=== PATIENT | female | born 1985 | race Caucasian/White ===

== ENCOUNTER → 2018-09-20 10:21 | Outpatient (POV) | payer SELFPAY ==
[2018-09-20 10:32] VITALS: BP 120/82; PULSE 103; RESP 20; TEMP 36.7; O2SAT 99
--- NOTE | 2018-09-20 10:50 | HMH.PMCON ---
Assessment and Plan (1) Back pain Current visit: Yes Status: Chronic Qualifiers: Chronicity: chronic Sciatica presence: unspecified whether sciatica present Category: Medical Code(s): M54.9 - Dorsalgia, unspecified (2) Abdominal pain Current visit: Yes Status: Chronic Qualifiers: Abdominal location: generalized Qualified Code(s): R10.84 - Generalized abdominal pain Category: Medical Code(s): R10.9 - Unspecified abdominal pain - Assessment and plan all Dx Assessment and Plan for all problems:: Patient is not a narcotic Today given her ORT score, release from past pain management due to inappropriate drug screen, due to her age and current pathology. Patient states that she is allergic to injections so she is unsure of this I did offer her to come after she has completed her if she would like to get updated imaging and potentially talk about injections in the future. Patient is not interested in this. Dr. Mccain has reviewed this note and agrees with this plan of care. This note was dictated using voice recognition software and may contain errors or omissions HPI - Data of Consult Consult date: 09/20/18 Requesting Physician: Cynthia Henry APRN Primary Care Provider: Osiel Valverde MD - Consult Narrative Reason for consult: Generalized pain History of present illness: Ms. Hernandez is a 33 year old female who presents today for consultation in regards to her medication management. Patient was seen in a pain clinic in [facility] where she was receiving oxycodone 15 mg 1 p.o. 3 times daily. Patient states that she failed a drug screen stating that there was heroin in it however she stated that that was suspect because of the people in the front office did not like her much. Patient also stated that somebody was making appointments that she was unaware of which she missed. Patient has been off oxycodone for some time she is 8 weeks I discussed with her that we would not be prescribing any medication for her especially while she is when asked her symptomology she states that she has endometriosis along with back pain we do not have any recent imaging on the patient. Patient rates her pain a 5 out of 10. Patient has tried and failed chiropractic therapy along with physical therapy. CC: Cynthia Henry APRN [facility] History I have reviewed the patient's past medical history: Yes Medical History: Denies:: Diabetes Mellitus Type 1, Diabetes Mellitus Type 2 Laterality Cases: Left: Other, Right: Arthroscopy Shoulder Amputation: No Fractures: Yes (FOOT) - *Social History Smoking Status: Unknown if ever smoked Alcohol Intake: never *Occupational Status:: other *Travel in the last 8 weeks: None - Psychiatric History Expresses thoughts of harming self/others: None Suicide Plan Description: No Plan Family Hx:: Unable to obtain Review of Systems - Review of Systems ROS General: no recent weight change, no fever, no sleep disturbances Respiratory: no cough, no shortness of air, no recurring pulmonary infections Cardiovascular/Peripheral Vascular: No chest pain, No palpitations, no edema, no shortness of breath. Gastrointestinal: no incontinence, normal bowel movements reported Genitourinary: no incontinence Musculoskeletal: Back pain, abdominal pain Psychiatric: normal mood/ affect Neurological: [denies weakness in extremities], [denies balance issues] Meds Home Medications Medication Instructions Recorded Confirmed Type norgestimate 0.25 mg-ethinyl 1 tab PO DAILY #28 tab 05/10/18 Rx estradiol 35 mcg tablet Allergies Allergy/AdvReac Type Severity Reaction Status Date / Time No Known Allergies Allergy Unverified 06/02/17 15:41 Objective Vital signs: Temp Pulse Resp BP Pulse Ox 98.0 F 103 H 20 120/82 99 09/20/18 10:32 09/20/18 10:32 09/20/18 10:32 09/20/18 10:32 09/20/18 10:32 Donnieat
--- NOTE | 2018-09-20 10:53 | P.CONS_ITS ---
Assessment and Plan (1) Back pain Current visit: Yes Status: Chronic Qualifiers: Chronicity: chronic Sciatica presence: unspecified whether sciatica present Category: Medical Code(s): M54.9 - Dorsalgia, unspecified (2) Abdominal pain Current visit: Yes Status: Chronic Qualifiers: Abdominal location: generalized Qualified Code(s): R10.84 - Generalized abdominal pain Category: Medical Code(s): R10.9 - Unspecified abdominal pain - Assessment and plan all Dx Assessment and Plan for all problems:: Patient is not a narcotic Today given her ORT score, release from past pain management due to inappropriate drug screen, due to her age and current pathology. Patient states that she is allergic to injections so she is unsure of this I did offer her to come after she has completed her if she would like to get updated imaging and potentially talk about injections in the future. Patient is not interested in this. Dr. Mccain has reviewed this note and agrees with this plan of care. This note was dictated using voice recognition software and may contain errors or omissions HPI - Data of Consult Consult date: 09/20/18 Requesting Physician: Cynthia Henry APRN Primary Care Provider: Osiel Valverde MD - Consult Narrative Reason for consult: Generalized pain History of present illness: Ms. Hernandez is a 33 year old female who presents today for consultation in [facility] to her medication management. Patient was seen in a pain clinic in [facility] where she was receiving oxycodone 15 mg 1 p.o. 3 times daily. Patient states that she failed a drug screen stating that there was heroin in it however she stated that that was suspect because of the people in the front office did not like her much. Patient also stated that somebody was making appointments that she was unaware of which she missed. Patient has been off oxycodone for some time she is 8 weeks I discussed with her that we would not be prescribing any medication for her especially while she is when asked her symptomology she states that she has endometriosis along with back pain we do not have any recent imaging on the patient. Patient rates her pain a 5 out of 10. Patient has tried and failed chiropractic therapy along with physical therapy. CC: Cynthia Henry APRN [facility] History I have reviewed the patient's past medical history: Yes Medical History: Denies:: Diabetes Mellitus Type 1, Diabetes Mellitus Type 2 Laterality Cases: Left: Other, Right: Arthroscopy Shoulder Amputation: No Fractures: Yes (FOOT) - *Social History Smoking Status: Unknown if ever smoked Alcohol Intake: never *Occupational Status:: other *Travel in the last 8 weeks: None - Psychiatric History Expresses thoughts of harming self/others: None Suicide Plan Description: No Plan Family Hx:: Unable to obtain Review of Systems - Review of Systems ROS General: no recent weight change, no fever, no sleep disturbances Respiratory: no cough, no shortness of air, no recurring pulmonary infections Cardiovascular/Peripheral Vascular: No chest pain, No palpitations, no edema, no shortness of breath. Gastrointestinal: no incontinence, normal bowel movements reported Genitourinary: no incontinence Musculoskeletal: Back pain, abdominal pain Psychiatric: normal mood/ affect Neurological: [denies weakness in extremities], [denies balance issues] Meds Home Medications Medication I
== END ==
PROVIDERS: PCP Family Medicine; Visit Provider Clinical Nurse Specialist Family Health
DX: M54.9 Dorsalgia, unspecified (principal); R10.84 Generalized abdominal pain
CPT/HCPCS: 99202

== ENCOUNTER → 2022-09-29 15:15 | Outpatient (CLI) | payer MEDICAID, SELFPAY | PROVIDERS: PCP Family Medicine; Visit Provider Family Medicine | DX: I34.1 Nonrheumatic mitral (valve) prolapse (principal) | CPT/HCPCS: 93306 ==

== ENCOUNTER 2025-02-22 15:20 | Outpatient (CLI) | payer MEDICAID, SELFPAY ==
--- OUTSIDE RECORDS SUMMARY | 2017-07-31 13:05 | XMS_ITS | Encounter Summary ---
Author Organization [place] [address] Care Team Providers Care Broadcaster Name Role Phone Cinthya Guevara APRN Primary Care Provider [phone] Encounter Details Date Type Department Care Team (Late st Contact Info) Description 07/31/2017 12:05 PM EST Hospital Encounter [facility] Referral Lab [address] [place] [address] Hany Olson MD [address] [place] [address] Social History Tobacco Use Types Packs/Day Years Used Date Smoking Tobacco: Every Day Cigarettes 0.5 24.7 Started: 06/15/2000 Smokeless Tobacco: Never Alcohol Use Standard Drinks/Week Comments No 0 (1 standard drink = 0.6 oz pur e alcohol) PHQ-2 Answer Date Recorded PHQ-2 Total Score 0 08/22/2021 Sexually Active Control Partners Comments Yes Other-see comments Male Comments No Sex and Gender Information Value Date Recorded Sex Assigned at Not on file Legal Sex Female 2:08 AM EDT Gender Identity Not on file Sexual Orientation Not on file COVID-19 Exposure Response Date Recorded In the last month, have you been in contact with someone who was confirmed or suspected to have Coronavirus / COVID-19? No / Unsure 06/18/2021 5:41 PM EST documented as of this encounter Functional Status * Cognitive and Functional Status Question Answer Date of Assessment Author Is the person deaf or does he/she have serious difficulty hearing? No 08/22/2021 1:59 PM Kisha Lopez, CCMA Is the person blind or does he/she have serious difficulty seeing even when wearing glasses? No 08/22/2021 1:59 PM Kisha Lopez, CCMA Does this person have seriou s difficulty walking or climbing stairs? No 08/22/2021 1:59 PM Kisha Lopez, CCMA Does this person have difficulty dressing or bathing? No 08/22/2021 1:59 PM Kisha Lopez, CCMA * Alcohol Screening Score Answer Date of Assessment Author 0 05/15/2019 5:52 PM Krista Tovar RN * Drug Screening Score Answer Date of Assessment Author 0 05/15/2019 5:52 PM Krista Tovar RN * Question Answer Date of Assessment Author How often do you have a drin k containing alcohol? 0 05/15/2019 5:52 PM Kisha Tovar RN * PHQ-9 Total Score Answer Date of Assessment Author 0 08/22/2021 1:59 PM Ivet Lopez CCMA * Question Answer Date of Assessment Author Little interest or pleasure in doing things 0 08/22/2021 1:59 PM Kisha Lopez, CCMA Feeling down, depressed, or hopeless 0 08/22/2021 1:59 PM Kisha Lopez, CCMA PHQ-2 Total Score 0 08/22/2021 1:59 PM Kisha Lopez, CCMA * Suicide Severity Rating Answer Date of Assessment Author No Risk 12/04/2023 12:39 AM Donnell Vick RN * [place] Suicide Severity Rating Scale (Q shift for moderate and high) Question Answer Date of Assessment Author 1. In the past month, have you wished you were or wished you could go to sleep and not wake up? 0 12/04/2023 12:39 AM Kena Vick RN 2. In the past month, have you actually had any thoughts of killing yourself? (If no, skip to question 6) 0 12/04/2023 12:39 AM Kena Vick RN 6. Have you ever done anything, started to do anything, or prepared to do anything to end your life? 0 12/04/2023 12:39 AM EDT Miquel Mclaughlin, JUAN CARLOS documented as of this encounter Mental Status * Cognitive and Functional Status Question Answer Entry Date Author Because of a physical, menta l or emotional condition, does this person have difficulty doing errands alone such as visiting a doctor's office or shopping? No 08/22/2021 1:59 PM Kisha Lopez CCMA Because of a physical, menta l or emotional condition, does this person have serious difficulty concentrating, remembering or making decisions? No 08/22/2021 1:59 PM Kisha Lopez, CCMA documented in this encounter Plan of Treatment Not on file documented as of this encounter Goals Goal Patient Goal Type Associated Problems Recent Progress Patient-Stated? Author Maintain a healthy diet, exercise regularly and maintain an ideal body weight General No Sadia Paul RN Stay Tobacco Free Lifestyle No Sadia Paul RN documented as of this encounter Visit Diagnoses Not on filedocumented in this encounter Additional Health Concerns Assessment Noted Time PHQ-2 Depression Total Score: 2 10/07/19 15 3:00 PM EDT documented as of this encounter Care Teams Broadcaster Relationship Specialty Start Date End Date Cinthya Guevara APRN [address] [place] [phone] PCP - General Nurse Practitioner 09/24/16 05/25/18 documented as of this encounter
--- OUTSIDE RECORDS SUMMARY | 2025-02-22 15:22 | XMS_ITS | Clinical Summary ---
Author Organization [facility] Address [address] [place] [id number] Phone Care Team Providers Care Lollypop Machine Operator Name Role Phone Lynn Proctor APRN Primary Care Physician Conditions or Problems Problem Name Problem Code Onset Date Status Entry Date Provider Comment Standard Description Annotate Transient alteration of awareness 299767102 (SNOMED CT) 12/08 Inactive 12/10 Ananya Isis WHISKEY REGAUGER Consciousness and/or awareness finding Tobacco User 877351144 (SNOMED CT) 12/08 Active 12/09 Ananya Isis WHISKEY REGAUGER Tobacco user Body mass index (BMI) 21.0-21.9; adult Z68.21 (ICD-10-CM) 12/08 Active 12/09 Ananya Isis WHISKEY REGAUGER Body mass index [BMI] 21.0-21.9, adult Body mass index (BMI) 21.0-21.9; adult Z68.21 (ICD-10-CM) 12/08 Correctio n 12/08 Ananya Isis WHISKEY REGAUGER Body mass index [BMI] 21.0-21.9, adult Depression / anxiety 884222313 (SNOMED CT) 12/08 Active 12/09 Ananya Isis WHISKEY REGAUGER Mixed anxiety and depressive disorder Body mass index (BMI) 21.0-21.9; adult Z68.21 (ICD-10-CM) 12/08 Removed 12/08 Ananya Isis WHISKEY REGAUGER Body mass index [BMI] 21.0-21.9, adult Body mass index (BMI) 22.0-22.9; adult Z68.22 (ICD-10-CM) Correctio n Ananya Isis WHISKEY REGAUGER Body mass index [BMI] 22.0-22.9, adult Screening for thyroid disorder 648575992 (SNOMED CT) 12/08 Inactive 12/08 Ananya Isis WHISKEY REGAUGER Thyroid disorder screening Screening for diabetes 056603838 (SNOMED CT) 12/08 Inactive 12/08 Ananya Isis WHISKEY REGAUGER Diabetes mellitus screening Screening visit for sexually trans dis 425958659 (SNOMED CT) 12/08 Inactive 12/08 Ananya Isis WHISKEY REGAUGER Venereal disease screening Hypokalemia 26194173 (SNOMED CT) 12/08 Inactive 12/08 Ananya Isis WHISKEY REGAUGER Hypokalemia Painful menstrual flow 829910824 (SNOMED CT) 12/08 Active 12/08 Ananya Isis WHISKEY REGAUGER Dysmenorrhea Headache, unspecified 12210140 (SNOMED CT) 12/08 Inactive 12/08 Ananya Isis WHISKEY REGAUGER Headache Body mass index (BMI) 22.0-22.9; adult Z68.22 (ICD-10-CM) Removed Judi Churchill APRN Body mass index [BMI] 22.0-22.9, adult Allergic conjunctivi tis, left [id number] 4102 (SNOMED CT) Active Judi Churchill APRN Allergic conjunctivitis of left eye Body mass index (BMI) 22.0-22.9; adult Z68.22 (ICD-10-CM) 0 Correctio n Judi Churchill APRN Body mass index [BMI] 22.0-22.9, adult Muscle strain 93860878 (SNOMED CT) Active Judi Churchill APRN Muscle strain Neck spasm 66621447 (SNOMED CT) Active Judi Churchill APRN Muscle spasm of head and/or neck Cervicalgia 74971433 (SNOMED CT) Active Judi Churchill APRN Neck pain Body mass index (BMI) 22.0-22.9; adult Z68.22 (ICD-10-CM) Removed Lynn Proctor APRN Body mass index [BMI] 22.0-22.9, adult Annual physical examination , general 434535183 (SNOMED CT) Inactive Lynn Proctor APRN General examination of patient Dental abscess 509270688 (SNOMED CT) Inactive Lynn Proctor APRN Dental abscess Medications Medication Instructions Start Date Stop Date Generic Name NDC Provider IBUPROFEN 800 MG TABS Take 1 tablet by mouth twice a day as needed for pain 12/10 ibuprofen [id number] Ananya Isis WHISKEY REGAUGER ZADITOR 0.035 % SOLN Administer 1 drop into affected eye twice a day as needed 12/10 ketotifen fumarate 15554003435 Ananya Isis WHISKEY REGAUGER CYCLOBENZAPRINE HCL 5 MG TABS Take 1 tablet by mouth every eight hours as needed May cause drowsiness. 12/10 cyclobenzaprine 81572523686 Ananya Isis WHISKEY REGAUGER AMOXICILLIN-POT CLAVULANATE 875-125 MG TABS Take 1 tablet by mouth twice a day for 10 days amoxicillin-pot clavulanate 46378702027 Lynn Proctor APRN Zaditor 0.025 % (0.035 %) drops Administer 1 drop into affected eye twice a day as needed ketotifen fumarate 88420138041 Judi Churchill APRN CYCLOBENZAPRINE HCL 5 MG TABS Take 1 tablet by mouth every eight hours as needed May cause drowsiness. cyclobenzaprine 50110953089 Judi Churchill APRN AMOXICILLIN-POT CLAVULANATE 875-125 MG TABS Take 1 tablet by mouth twice a day for 10 days amoxicillin-pot clavulanate 83134365256 Lynn Proctor WHISKEY REGAUGER IBUPROFEN 800 MG TABS Take 1 tablet by mouth twice a day as needed for pain ibuprofen 71077165462 Lynn Proctor WHISKEY REGAUGER Medications Administered No information available. Allergies, Adverse Reactions, Alerts Allergy Name Reaction Description Start Date Severity Statu s Provider HYDROCODONE throat itching and vomiting Severe Active Lynn tapia WHISKEY REGAUGER Results Date Name Value Unit Range Flag Description Lab Report: HIV 1/2 ANTIGEN/ ANTIBODY,FOURTH GENERATION W/RFL, BASIC META ... RPR NON-REACTIVE NON-REACTIV E N Reagin Ab [Units/volume] in Serum by VDRL HGBA1C 5.1 % OF TOTAL HGB % <5.7 N Hemoglobin A1c/Hemoglobin, total in Blood - % TSH 1.98 u[iU]/mL N Thyrotropin [Units/volume] in Serum or Plasma MPV 10.6 fL 7.5-12.5 N Platelet magali n volume [Entitic volume] in Blood by Quentin PLATELETK/UL 281 THOUSAND/UL 10*3/uL 140-400 N platelet count RDW 13.1 % 11.0-15.0 N Erythrocyte distribution width [Ratio] by Automated count OL-MCHC 33.0 g/dL 32.0-36.0 N mean corpus cular hemoglobin concentration, rbc MCH 29.6 pg 27.0-33.0 N MCH [Entiti c mass] by Automated count MCV 89.6 fL 80.0-100.0 N MCV [Entit ic volume] by Automated count HCT 41.2 % 35.0-45.0 N Hematocrit [Volume Fraction] of Blood by Automated count HGB 13.6 g/dL 11.7-15.5 N Hemoglobin [Mass/volume] in Blood RBC M/UL 4.60 MILLION/UL 10*6/uL 3.80-5.10 N red blood count WBC CT BLOOD 5.4 10*3/uL 3.8-10.8 N leukocy te count, blood CALCIUM 9.5 mg/dL 8.6-10.2 N Calcium [Moles/volume] in Serum or Plasma CO2 30 mmol/L 20-32 N Carbon dioxid e, total [Moles/volume] in Venous blood CHLORIDE BLD 103 mmol/L 98-110 N chloride , blood POTASSIUM 3.6 mmol/L 3.5-5.3 N Potassium [Moles/volume] in Serum or Plasma SODIUM 140 mmol/L 135-146 N Sodium [Moles/volume] in Serum or Plasma BUN/CREAT 5 (calc) 6-22 L Urea nitrogen/Creatinin e [Mass Ratio] in Serum or Plasma CREATININE 0.84 mg/dL 0.50-0.97 N Creatini ne [Mass/volume] in Serum or Plasma BUN 4 mg/dL 7-25 L Urea nitrogen [Mass/volume] in Serum or Plasma GLUCOSE SER 84 mg/dL 65-99 N Glucose [Mass/volume] in Serum or Plasma HIV AB NON-REACTIVE NON-REACTIV E N HIV 1 p51 Ab [Presence] in Serum by Immunoblot Plan of Care Type Date Detail [place] [facility] [place] [address] [place] [address], [address] Referral Chiropractic Ref [facility], [address], [place], [address] Pending order T1 BMP Pending order T1 CBC no diff Pending order T1 HGBA1c Pending order T1 TSH reflex to free T4 Pending order T1 RPR w/ reflex to titer & confirmation Pending order T1 HIV 1/2 Ag & Ab 4th gen -consent required Procedures Code Procedure Name Date Entry Date CPT-3074F Most recent systolic blood pressure <130 mm Hg CPT-3079F Most recent diastoli c blood pressure 80-89 mm Hg CPT-1159F Medication list docu mented in medical record [id number] Medication Reconciliation 4004F Patient screened for tobacco use and received tobacco cessation intervention [id number] Current every day smoker 06/12/25 [id number] Smoking cessation education [id number] Smoking cessation education [facility] 79875 T1 BMP [facility] 1759 T1 CBC no diff [facility] 496 T1 HGBA1c [facility] 96307 T1 TSH reflex to free T4 09/18/25 [facility] 21420 T1 RPR w/ reflex to titer & confirmation [facility] 35114 T1 HIV 1/2 Ag & Ab 4 th gen -consent required [id number] Medication Reconciliation CPT-3077F Most recent systolic blood pressure >=140 mm Hg CPT-1159F Medication list docu mented in medical record CPT-1160F Review of all medica tions by a prescribing practitioner [id number] Medication Reconciliation CPT-3075F Most recent systolic blood pressure 130-139 mm Hg CPT-3079F Most recent diastoli c blood pressure 80-89 mm Hg CPT-1160F Review of all medica tions by a prescribing practitioner Vital Signs Date Name Value Unit Description BMI (Body Mass Index) 21.19 kg/m2 Bod y Mass Index (Ratio) Body Temperature 98.4 [degF] temperat ure E&M Body Temperature 36.89 Tara temperat ure in centigrade E&M BP Diastolic 85 mm[Hg] blood pressu re, diastolic BP Systolic 124 mm[Hg] blood pressur e, systolic BSA (Body Surface Area) 1.78 b ashley surface area Heart Rate 68 /min pulse rate Height 69 [in_us] height E&M Height 175.26 cm height in cent imeters E&M Weight Measured 65 kg weight in kilograms E&M Weight Measured 143 [lb_av] weight E& M Weight Measured 143 [lb_av] weight E& M Immunizations No information available. Advance Directives No information available.
--- OUTSIDE RECORDS SUMMARY | 2025-02-22 15:23 | XMS_ITS | Encounter Summary ---
Author Organization [place] [address] Care Team Providers Care Souvenir Assembler Name Role Phone No Pcp, Per Patient Primary Care Provider Xenia mcdowell Reason for Visit * Reason Onset Date Comments New Patient 02/03/2025 Encounter Details Date Type Department Care Team (Late st Contact Info) Description 02/03/[address] [phone] Yamini Mendoza NA New Patient Social History Tobacco Use Types Packs/Day Years [...] on file Sexual Orientation Not on file documented as of this encounter Functional Status * Is the person deaf or does he/she have serious difficulty hearing? Answer Date of Assessment Author No 08/22/2021 1:59 PM Ivet Lopez CCMA * Is the person blind or does he/she have serious difficulty seeing even when wearing glasses? Answer Date of Assessment Author No 08/22/2021 1:59 PM Ivet Lopez CCMA * Does this person have serious difficulty walking or climbing stairs? Answer Date of Assessment Author No 08/22/2021 1:59 PM Ivet Lopez Bri LATRICIA * Does this person have difficulty dressing or bathing? Answer Date of Assessment Author No 08/22/2021 1:59 PM Ivet Lopez Bri LATRICIA * Because of a physical, mental or emotional condition, does this person have difficulty doing errands alone such as visiting a doctor's office or shopping? Answer Date of Assessment Author No 08/22/2021 1:59 PM Ivet Lopez LATRICIA documented as of this encounter Mental Status * Because of a physical, mental or emotional condition, does this person have serious difficulty concentrating, remembering or making decisions? Answer Entry Date Author No 08/22/2021 1:59 PM Ivet Lopez Bri LATRICIA documented in this encounter Miscellaneous Notes * Telephone Encounter - Yamini Mendoza NA - 02/03/2025 3:18 PM EDT [facility] referral and OV note scanned. Pt is interventional only. Per note Pt has a history of methadone and suboxone use. documented in this encounter Plan of Treatment Not on file documented as of this encounter Goals Goal Patient Goal Type Associated Problems Recent Progress Patient-Stated? Author Maintain a healthy diet, exercise regularly and maintain an ideal body weight General No Sadia Paul, RN Stay Tobacco Free Lifestyle No Sadia Paul, RN documented as of this encounter Visit Diagnoses Not on filedocumented in this encounter Care Teams Souvenir Assembler Relationship Specialty Start Date End Date No Pcp, Per Patient PCP - General 11/29/23 documented as of this encounter
--- OUTSIDE RECORDS SUMMARY | 2025-02-22 15:23 | XMS_ITS | Clinical Summary ---
Author Organization Healthcare Address [address] [place] [address] Care Team Providers Care Extermination Supervisor Name Role Phone Unavailable Primary Care Provider Unavailabl e Social History Tobacco Use Types Packs/Day Years Used Date Smoking Tobacco: Never Assessed Comments Unknown Sex and Gender Information Value Date Recorded Sex Assigned at Not on file Legal Sex Female 7:18 PM EDT Gender Identity Not on file Sexual Orientation Not on file Plan of Treatment Health Maintenance Due Date Last Done Comments [facility]-Depression Screening 1984 [facility]-Infant/Child/Adol SDOH Screenings 1984 [facility]-Varicella Vaccines (1 of 2 - 13+ 2-dose series) 1997 [facility]- SDOH Screenings 2002 [facility]-Adult SDOH Screenings 2002 [facility]-Hepatitis B Vaccines (1 of 3 - 19+ 3-dose series) 2003 [facility]-Pap Smear 2005 HPV Vaccines (1 - 3-dose SCD M series) 2011 [facility]-Cervical Cancer Screening 2014 [facility]-HPV/Cotest 2014 [facility]-DTaP,Tdap,and Td Vaccine s (2 - Td or Tdap) 12/08/2019 12/07/2009 [id number] Vaccine (1 - 20 24-25 season) 2025 [facility]-Influenza Vaccine (#1) 2025 [facility]-Zoster Vaccines (1 of 2) 2034 [facility]-HIB Vaccines Aged Out No longer e ligible based on patient's age to complete this topic [facility]-Hepatitis A Vaccines Aged Out No longer eligible based on patient's age to complete this topic [facility]-IPV Vaccines Aged Out No longer e ligible based on patient's age to complete this topic [facility]Y-Pneumococcal Vaccine: Pediatrics (0 to 5 Years) and At-Risk Patients (6 to 49 Years) Aged Out No long er eligible based on patient's age to complete this topic [facility]-Rotavirus Vaccines Aged Out No lo nger eligible based on patient's age to complete this topic
--- OUTSIDE RECORDS SUMMARY | 2025-02-22 15:24 | XMS_ITS | Clinical Summary ---
Author Organization [facility] Address [address] [place] [address] Phone Care Team Providers Care Geophysical Laboratory Supervisor Name Role Phone No Pcp, Per Patient Primary Care Provider Unavai lable Allergies Active Allergy Reactions Criticality Noted Date Comments Gabapentin Other (See Comments) High 11/27/2014 Patient can't tolerate med, extremely tired, palpitations, feels high, hallucinations Hydrocodone Itching,Nausea And Vomiting,Other (See Comments) High 07/27/2017 my stomach hurts Medications * This document contains information received from the source organization and may not represent a complete record from that organization. No known medications Active Problems Patient Care Coordination No te Formatting of this note migh t be different from the original. PER MELVI/ALFREDITO DO NOT SCHEDULE AGAIN WITH THEM. 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 Problem Noted Date Diagnosed Date Preventative health care 01/12/2023 Chronic musculoskeletal pain 06/23/2022 Pain management contract agreement 05/28/2022 Overview (05/28/2022): pt to bring Rx to Dr Moreno, then he will write RX for pain management. Contract for pain management with [facility] for pain relief, Dr Champion. Thoracogenic scoliosis of thoracic region 2021 Degenerative disc disease, lumbar 08/22/2021 Overview (08/22/2021): Very mild She declines any interventional treatment and wanting pain mgmt. I explained that she doesn't meet criteria for pain mgmt as she has not tried and failed conservative treatment such as PT, IR injection, etc. I provided referral to Dr. Funes who offers interventional treatment. Methadone maintenance therapy patient 03/25/2019 ADHD (attention deficit hype ractivity disorder), combined type 10/13/2017 Acne vulgaris 04/07/2017 Migraine without aura and wi thout status migrainosus, not intractable 02/23/2017 Chronic interstitial cystitis with hematuria 04/2017 Gastroesophageal reflux disease with esophagitis 01/06/2017 Depression 10/31/2016 Seasonal allergic rhinitis due to pollen 017 Mild intermittent extrinsic asthma 10/31/2016 Generalized anxiety disorder 09/24/2016 Chronic bilateral low back pain 10/15/2012 Neck pain 12/08/2011 Dysmenorrhea 12/08/2011 Resolved Problems Problem Noted Date Diagnosed Date Resolved Date Laboratory examination 01/12/202301/12 Precipitous delivery 04/22/2019 022 (spontaneous vaginal delivery) 04/22/2019 08/22/2021 38 weeks gestation of 04/18/2019 04/22/2019 Decreased movement aff ecting management of in third trimester, fetus 1 04/18/2019 04/24/2019 NST (non-stress test) reactive 03/25/2019 04/06/2019 Supervision of other normal 05/05/2013 04/24/2019 Overview (01/12/2019): Dating/Anatomy US/PNL ordered Encounters * This document contains information received from the source organization and may not represent a complete record from that organization. Date Type Department Care Team Description 02/03/2025 Telephone [facility] [address] [address] Yamini Mendoza NA New Patient from Last 3 Months Immunizations Immunization Administration Dates Next Due Influenza, Split (Incl. Purified Surface Antigen ) 05/13/2023,05/13/2023 PPD Test 08/31/2017 Tdap 12/07/2009 Surgical History Surgery Date Site/Laterality Comments HIATAL HERNIA REPAIR ~1989 DENTAL SURGERY wisdom teeth x 4 removed, 1 tooth in front with veneer is loose, dental implant x 1, BLADDER SURGERY stretched SHOULDER ARTHROTOMY 08/06/2017 Right RIGHT SHOULDER OPEN SOPERTON ; Surgeon: Hany Olson MD; Location: [facility]; Service: Orthopedics Medical History Medical History Date Comments Interstitial cystitis Chronic hip pain ADHD (attention deficit hype ractivity disorder) Pain management contract agreement pt to bring Rx to Dr Moreno, then he will write RX for pain management. Contract for pain management with [facility] for pain relief, Dr Champion. Scoliosis Work related injury [address] [place], fractured right mandible, stitches in chin, messed up right arm elbow with tear in cartiledge Chronic pain bilateral jaws, neck, shoulders, back, both hips, knees, left foot Fall with injury 06/2016 fell off sidewa lk, injured left foot with 6 fractures Smoker 1 PPD, started s moking @ age 15 Hiatal hernia hernia surgery @ age 4 Irritable bowel syndrome Heartburn Arthritis Headache Urinary incontinence Endometriosis Family History Medical History Relation Name Comments No Known Problems Father Heart Failure Maternal Grandmother Colon Cancer Maternal Uncle High Blood Pressure Mother Breast Cancer Paternal Aunt Heart Attack Paternal Grandfather Alzheimer's Disease Paternal Grandmother Anesth Problems Neg Hx Relation Name Status Comments Brother 1 Alive Brother 2 Alive Father Alive Maternal Grandfather Maternal Grandmother Maternal Uncle Mother Alive Paternal Aunt Paternal Grandfather Paternal Grandmother Sister 1 Alive Sister 2 Alive Social History Tobacco Use Types Packs/Day Years Used Date Smoking Tobacco: Every Day Cigarettes 0.5 24.7 Started: 06/15/2000 Smokeless Tobacco: Never Tobacco Cessation:Ready to Q uit: Not Asked; Counseling Given: Not Answered Alcohol Use Standard Drinks/Week Comments No 0 [...] on file Sexual Orientation Not on file Obstetrics History Para Term AB IAB SAB Ectopic Multiple Livin g Live Births 2 2 2 0 2 2 Date Outcome GA Total Labor Labor/2nd/3rd Weight Sex Type Anes PTL [place] A1 A5 Name Clin Term Vag-S pont Livin g 019 Term 39w 0d 0h 04m 0h 04m 6 lb 11.1 oz (3.035 kg) F Vag-S pont None Y Livin g BROWN ING,C HRIST Y GIRL Selenabryce Dot [place], Delivery [facility] Comments:no anomalies noted Last Filed Vital Signs Vital Sign Reading Time Taken Comments Blood Pressure 133/94 12/04/2023 12:22 AM EDT Pulse 50 12/04/2023 12:29 AM EDT Temperature 36.6 C (97.9 F) 12/04/2023 12:29 AM EDT Respiratory Rate 16 12/04/2023 12:2 9 AM EDT Oxygen Saturation 98% 12/04/2023 12: 22 AM EDT Inhaled Oxygen Concentration - - Weight 65.2 kg (143 lb 11.2 oz) 024 11:26 AM EDT Height 172.7 cm (5' 8 ) 11/29/2023 3:40 PM EDT Body Mass Index 21.85 11/09/2023 11:26 AM EDT Plan of Treatment Health Maintenance Due Date Last Done Comments Hepatitis B Vaccine (1 of 3 - 19+ 3-dose series) 2003 Pneumococcal Vaccine 0-49 (1 of 2 - PCV) 2003 HPV/Pap Cotest 2014 Annual Wellness Exam 08/01/2015 08/01/2014 (Declined ) DTaP/TDaP/Td (2 - Td or Tdap) 12/08/2019 12/07/2009 Cervical Cancer Screening 01/12/2022 Pap Smear 01/12/2022 01/12/2019, 07/16 (Declined) Breast Cancer Screening 2024 COVID-19 Vaccine ( - season) 2025 Influenza Vaccine (#1) 2025 , 05/13/2023, 05/01/2017 (Declined), Additional history exists Meningococcal B Vaccine Aged Out No l onger eligible based on patient's age to complete this topic Goals Goal Patient Goal Type Associated Problems Recent Progress Patient-Stated? Author Maintain a healthy diet, exercise regularly and maintain an ideal body weight General Sadia Winchester, RN Stay Tobacco Free Lifestyle Sadia Winchester, RN Medical Devices Implanted Type Area Media Planner / Buyer Device Identifier Shelf Expiration Date Model / Serial / Lot Dental Implant Upper Front Left X 1 Procedures Procedure Name Priority Date/Time Associated Diagnosis Comments CARE SPECIALIST CYTOLOGY REQUEST (PAP ONLY) Routine 01/12/2019 3:52 PM EDT Encounter for supervision of other normal in second trimester from Last 3 Months or Most Recently Relevant to Health Maintenance Results * CARE SPECIALIST CYTOLOGY REQUEST (PAP ONLY) (01/12/2019 3:52 PM EDT) CASE REPORT Gynecologic Cytology Report Case: [id number] Authorizing Provider: Lynn Walker Collected: 01/12/2019 1552 DO Jaquelin Ordering Location: [facility] Received: 01/12/2019 1552 First Screen: Zabrina Sousa CT Rescreen: Roseanne Barahona CT Specimen: LIQUID-BASED PAP - CERVICAL/ENDOCERV ICAL, Cervix, Endocervical 01/13/2019 1:16 PM EDT [facility] PAP FINAL DIAGNOSIS Negative for intraepithelial lesion or malignancy 01/13/2019 1:16 PM EDT [facility] at 1316 EDT MICROSCOPIC DESCRIPTION Microscopic examination is performed and the findings corroborate the diagnosis. 01/13/2019 1:16 PM EDT [facility] PAP SMEAR ADEQUACY Satisfactory for evaluation 01/13/2019 1:16 PM EDT [facility] ENDOCERVICAL T-ZONE Transformation zone present 01/13/2019 1:16 PM EDT [facility] 1:16 PM EDT [facility] PAP DISCLAIMER The Pap Smear is a screening test that aids in the detection of cervical cancer and cancer precursors. Both false positive and false negative results can occur. The test should be used at regular intervals, and positive results should be confirmed before definitive therapy. Processed using the ThinPrep Torch Brazer Automated cytology screening device (GenY Medium). 01/13/2019 1:16 PM EDT [facility] Thin Prep ENDOCERVICAL STRUCTURE / Unknown 01/12/2019 3:52 PM EDT 01/12/2019 3:52 PM EDT Lynn Walker DO CYTOLOGY ORDERABLE S Final Result [facility] [address] [place] [address] from Last 3 Months or Most Recently Relevant to Health Maintenance [place] [address] [address] [facility] [place] [address] [id number] [place] [id number] Advance Directives For more information, please contact: [phone] * Full Code (Latest Code Status on File) Date Activated Date Inactivated Comments 04/22/2019 7:20 AM 04/24/2019 10:20 PM * Full Code Date Activated Date Inactivated Comments 08/06/2017 10:54 AM 08/06/2017 3:33 PM Care Teams Geophysical Laboratory Supervisor Relationship Specialty Start Date End Date No Pcp, Per Patient PCP - General 11/29/23
--- OUTSIDE RECORDS SUMMARY | 2025-02-22 15:24 | XMS_ITS | Clinical Summary ---
Author Organization [facility] Address [facility] [place] [address] Care Team Providers Care Hr Recruiter Name Role Phone Ace Sierra DO Primary Care Provider [phone] Source Comments This information has been disclosed to you from confidential records protectedfrom disclosure by state law. You shall make no further disclosure of thisinformation without the specific, written, and informed release of theindividual to whom it pertains, or as otherwise permitted by law. A generalauthorization for the release of medical or other information is not sufficientfor the purposes of therelease of HIV test results or diagnoses. [id number] Allergies Active Allergy Reactions Criticality Noted Date Comments Gabapentin 12/24/2015 Hydrocodone Itching 03/07/2023 Medications levonorgestrel (MIRENA) 20 mcg/24 hr (5 years) IUD 1 each by Intrauterine route continuous. Active tiZANidine (ZANAFLEX) 4 MG capsuleIndicati ons:Muscle Spasticity of Spinal Origin Take 4 mg by mouth 3 times a day. Indications: MUSCLE SPASTICITY OF SPINAL ORIGIN Active butalbital-acet aminophen-caffe ine (FIORICET, ESGIC) 50-325-40 mg per tabletIndicatio ns:Tension-Type Headache Take 1 tablet by mouth every 6 hours as needed for Headaches for up to 90 doses. Indications: Tension-Type Headache 90 tablet 0 6 Active oxyCODONE-aceta minophen (PERCOCET) 10-325 mg per tabletIndicatio ns:Neutropenic fever (CMS-HCC),Throm bocytopenia (CMS-HCC) Take by mouth. Activ e MONONESSA, 28, 0.25-35 mg-mcg per tabletIndicatio ns:Neutropenic fever ([facility]),Throm bocytopenia ([facility]-HCC) 6 Active cyclobenzaprine (FLEXERIL) 10 MG tablet Take 10 mg by mouth 3 times a day as needed for Muscle spasms. Active naproxen (NAPROSYN) 500 MG tablet Take 500 mg by mouth 2 times a day with meals. Active HYDROcodone-lópez taminophen (NORCO) 5-325 mg per tablet Take 1 tablet by mouth every 6 hours as needed for Pain. Active oxyCODONE (OXY-IR) 5 mg capsule Take 5 mg by mouth every 6 hours as needed for Pain. Active ondansetron (ZOFRAN, HYDROCHLORIDE,) 4 MG tablet Take 1 tablet (4 mg total) by mouth every 6 hours as needed for Nausea. 20 tablet 0 7 Active omeprazole (PRILOSEC) 10 MG capsule Take 2 capsules (20 mg total) by mouth every morning before breakfast. 30 capsule 0 7 Active mupirocin (BACTROBAN) 2 % ointment Apply topically 3 times a day. Then apply to each nostril twice daily for 5 days 30 g 3 9 Active chlorhexidine (HIBICLENS) 4 % external liquid Apply topically daily as needed. Use for 5 days when using bactroban in the nose 120 mL 2 9 Active Active Problems Problem Noted Date Diagnosed Date Impetigo 07/14/2018 Assessment & Plan (07/14/2018 4:13 PM EST): I suspect this is recurrent skin infections, perhaps from MRSA?? She was culture positive in 2010 for it. They appear benign. Recurrence might be related to re-inoculation. I doubt she has any immune deficiency of any kind. And I cannot tie this problem together with her other litany of symptoms. Acne 10/05/2014 Current every day smoker Back pain Resolved Problems Problem Noted Date Diagnosed Date Resolved Date Thrombocytopenia 12/24/2015 07/14/2018 Assessment & Plan (12/24/2015 5:07 PM EDT): Probably due to viral infection. Neutropenic fever 12/08/2015 07/14/2018 Assessment & Plan (12/24/2015 5:07 PM EDT): She appears clinically stable though she says she's not all the way better. My best guess is some unknown viral infection that will likely heal without intervention. Doubt malignancy. Tickborne illness seems remote given lack of clear response. Neck pain 12/12/2015 Family History Medical History Relation Comments Melanoma Neg Hx Social History Tobacco Use Types Packs/Day Years Used Date Smoking Tobacco: Every Day Cigarettes 1 13 Smokeless Tobacco: Never Tobacco Cessation:Ready to Q uit: Yes; Counseling Given: No Alcohol Use Standard Drinks/Week Comments No 0 (1 standard drink = 0.6 oz pur e alcohol) Comments No Sex and Gender Information Value Date Recorded Sex Assigned at Not on file Legal Sex Female 9:09 PM EST Gender Identity Not on file Sexual Orientation Not on file Last Filed Vital Signs Vital Sign Reading Time Taken Comments Blood Pressure 141/90 11/05/2023 4:39 AM EDT Pulse 53 11/05/2023 4:39 AM EDT Temperature 36.4 C (97.5 F) 11/05/2023 2:37 AM EDT Respiratory Rate 16 11/05/2023 4:39 AM EDT Oxygen Saturation 98% 11/05/2023 4:39 AM EDT Inhaled Oxygen Concentration 98% 11/05/2023 4 :39 AM EDT Weight 65.3 kg (144 lb) 07/14/2018 1:52 PM EST Height 172.7 cm (5' 8 ) 09/16/2016 3:07 PM EDT Body Mass Index 21.9 09/16/2016 3:07 PM EDT Plan of Treatment Health Maintenance Due Date Last Done Comments Alcohol Misuse Screening 2002 Depression Screening 2002 Immunization: Hepatitis B (1 of 3 - 19+ 3-dose series) 2003 Immunization: Pneumococcal ( 1 of 2 - PCV) 2003 Cervical Cancer Screening/Pa p Smear (MyChart) 2014 Immunization: DTaP/Tdap/Td ( 2 - Td or Tdap) 12/08/2019 12/07/2009 Mammogram ([employer]) 2024 Immunization: COVID-19 (2023- season) 2025 Immunization: Influenza (MyC hooks) (#1) 2025 HIV Screening Completed 07/14/2018, 12/13, 12/10/2015, Additional history exists Hepatitis C Screening (MyChart) Completed , 12/08/2015 Procedures Procedure Name Priority Date/Time Associated Diagnosis Comments ED HCV AB REFLEX TO HCV QUANT Routine 11/04/2023 9:02 PM EDT HIV 1+2 ANTIBODY/ANTIGEN WITH REFLEX Routine 07/14/2018 4:12 PM EST Impetigo from Last 3 Months or Most Recently Relevant to Health Maintenance Results * ED HCV Ab Reflex To HCV Quant (11/04/2023 9:02 PM EDT) HCV Ab Nonreactive Nonreactive 11/04/2023 10:01 PM EDT [facility] Comment:Health Department no tified in accordance with reportable infectious disease guidelines. HCVAB Number 0.12 0.00 - 0.79 S/CO 11/04/2023 10:01 PM EDT [facility] Serum 11/04/2023 9:02 PM EDT 11/04/2023 9:02 PM EDT us Christ Ratliff PA LAB BLOOD ORDERABLES Fin al Result [facility] [address] * HIV 1+2 Antibody/Antigen with Reflex (07/14/2018 4:12 PM EST) HIV 1+2 AB/AGN Nonreactive Nonreactive 07/14/2018 7:02 PM EST [facility] Serum specimen (specimen) 07/14/2018 4:12 PM EST 07/14/2018 6:10 PM EST Narrative [facility] - 07/14/2018 7:02 PM EST HIV-1 p24 Antigen and HIV-1/HIV-2 Antibody not detected. us Daniel Dior MD LAB BLOOD ORDERABLES Final R esult [facility] [address] [place] [address], [facility] from Last 3 Months or Most Recently Relevant to Health Maintenance Insurance Advance Directives For more information, please contact: [phone] * Full Code (Latest Code Status on File) Date Activated Date Inactivated Comments 12/08/2015 10:19 AM 12/12/2015 12:34 PM Care Teams Hr Recruiter Relationship Specialty Start Date End Date Ace Sierra DO PCP - General Family Medicine 09/20/14
--- OUTSIDE RECORDS SUMMARY | 2025-02-22 15:24 | XMS_ITS | Clinical Summary ---
Author Organization [facility] Address [address] [place] [address] Care Team Providers Care Biomedical Repair Technician Name Role Phone Cici Hair RN Unavailable [phone] Osiel Valevrde Primary Care Provider [phone] Jennifer Houser MD Unavailable [phone] Allergies Active Allergy Reactions Criticality Noted Date Comments Gabapentin Other (See Comments) 08/28/2020 Hallucinations Medications diclofenac (VOLTAREN) 75 mg EC tablet TAKE 1 TABLET BY MOUTH TWICE DAILY NEEDED FOR PAIN 10/08/2020 Active Family History Medical History Relation Name Comments No Pertinent Family Hx Neg Hx Social History Tobacco Use Types Packs/Day Years Used Date Smoking Tobacco: Every Day Cigarettes Smokeless Tobacco: Never Alcohol Use Standard Drinks/Week Comments Not Currently 0 (1 standard drink = 0.6 oz pur e alcohol) Comments No Sex and Gender Information Value Date Recorded Sex Assigned at Female 10/22/2020 12:53 PM EDT Legal Sex Female 12:32 PM EST Gender Identity Female 10/22/2020 12:53 PM EDT Sexual Orientation Straight 10/22/2020 12 :53 PM EDT Last Filed Vital Signs Vital Sign Reading Time Taken Comments Blood Pressure 161/102 08/28/2020 10:03 PM EDT Pulse 91 08/28/2020 10:03 PM EDT Temperature 36.6 C (97.8 F) 10/22/2020 12:50 PM EDT Respiratory Rate 17 08/28/2020 10:03 PM EDT Oxygen Saturation 100% 08/28/2020 10:03 PM EDT Inhaled Oxygen Concentration - - Weight 62.6 kg (138 lb) 10/22/2020 12:50 PM EDT Height 172.7 cm (5' 8 ) 10/22/2020 12:50 PM EDT Body Mass Index 20.98 10/22/2020 12:50 PM EDT Plan of Treatment Health Maintenance Due Date Last Done Comments Lipid Screening 2002 Cervical Cancer Screening 2005 HPV Vaccine (1 - 3-dose SCDM series) 2011 Tetanus Vaccination (Every 10 Years) 12/08/201911/14 Depression Screening 06/15/2024 COVID-19 Vaccine ( season) 2025 Influenza Vaccination (#1) 2025 Insurance Care Teams Biomedical Repair Technician Relationship Specialty Start Date End Date Osiel Valverde [address] [place] [phone] (Work) PCP - General Family Medicine 08/28/20 Cici Hair, JUAN CARLOS [address] [place] [address] Registered Nurse 08/28/20 Jennifer Houser MD [address] [place] [address] Physical Medicine and Rehab 10/22/20
--- NOTE | 2025-02-22 15:27 | XR_ITS ---
FINAL REPORT CLINICAL HISTORY: Low back pain FINDINGS: Three views of the lumbar spine were obtained. There is no prior exam for comparison. There is no acute fracture. There is mild dextroscoliosis. Vertebral body height is preserved. Disc space height is preserved. No acute paraspinal abnormality. IMPRESSION: No acute osseous abnormality of the lumbar spine. Mild dextroscoliosis. Reviewed, Interpreted and Dictated by Gretchen Paredes MD Transcribed by Rachel Fernandes Authenticated and . [facility]
--- NOTE | 2025-02-22 15:27 | XR_ITS ---
FINAL REPORT CLINICAL HISTORY: Left hip pain COMPARISON: None FINDINGS: AP and frog leg views with an AP pelvis view of the left hip were obtained. There is no acute fracture or dislocation of the pelvis or left hip. There is mild degenerative disease of the left hip. Soft tissues are unremarkable. IMPRESSION: Mild degenerative disease without acute osseous abnormality of the left hip. Reviewed, Interpreted and Dictated by Gretchen Paredes MD Transcribed by Rachel Fernandes Authenticated and [facility]
--- NOTE | 2025-02-22 15:27 | XR_ITS ---
FINAL REPORT CLINICAL HISTORY: Neck pain FINDINGS: AP, lateral and odontoid views of the cervical spine were obtained. There is no prior exam for comparison. There is no acute fracture or malalignment. Vertebral body height is preserved. There is mild degenerative disc disease most pronounced at C6-7. The precervical soft tissues are normal. IMPRESSION: Mild degenerative disc disease without acute abnormality. Reviewed, Interpreted and Dictated by Gretchen Paredes MD Transcribed by Rachel Fernandes Authenticated and [facility]
== END 2025-02-22 23:59 | disposition home or self-care (01) ==
LOC: RAD 15:21
PROVIDERS: PCP Family Medicine; Visit Provider Nurse Practitioner Family
DX: M41.86 Other forms of scoliosis, lumbar region (principal); M17.12 Unilateral primary osteoarthritis, left knee; M47.812 Spondylosis without myelopathy or radiculopathy, cervical region
CPT/HCPCS: 72040; 72100; 73502

== ENCOUNTER 2025-04-18 12:02 | Outpatient (CLI) | payer SELFPAY ==
[2025-04-18 15:19] LABS: Hematocrit 37.0 % (37.0-47.0); Hemoglobin 12.2 g/dL (12.2-16.2); Immature Granulocytes % 0.2 %; Mean Corpuscular HGB Conc 33.0 g/dL (31.8-35.4); Mean Corpuscular Hemoglobin 29.5 pg (27.0-31.2); Mean Corpuscular Volume 89.6 fl (81-99); Nucleated Red Blood Cells % 0 %; Platelet Count 265 K/mm3 (142-424); Red Blood Count 4.13 M/mm3 (4.20-5.40); Red Cell Distribution Width-SD 41.1 fL; White Blood Count 4.9 K/mm3 (4.8-10.8)
[2025-04-18 15:25] LABS: Alanine Aminotransferase 26 U/L (12-78); Albumin Level 4.2 g/dl (3.5-5.0); Albumin/Globulin Ratio 1.4 (1.1-1.8); Alkaline Phosphatase 47 U/L (38-126); Amylase 121 U/L (30-110); Anion Gap 10.0 mEq/L (5-15); Aspartate Amino Transferase 31 U/L (14-36); Bilirubin,Total 0.7 mg/dl (0.2-1.3); Blood Urea Nitrogen 7 mg/dl (7-17); Calcium 8.9 mg/dl (8.4-10.2); Carbon Dioxide 28 mmol/L (22.0-30.0); Chloride 103 mmol/L (98-107); Creatinine,Serum 0.70 mg/dl (0.52-1.04); Estimated Glomerular Filt Rate 93 ml/min (>60); GFR (African American) 112 ML/MIN (>60); Globulin 3.0 g/dL (1.3-3.2); Glucose 100 mg/dl (74-100); Lipase 461 U/L (23-300); Potassium 4.0 mmoL/L (3.5-5.1); Sodium 137 mmol/L (136-145); Total Protein,Serum 7.2 g/dl (6.3-8.2)
[2025-04-18 15:52] LABS: Thyroid Stimulating Hormone 1.87 uIU/mL (0.465-4.68)
[2025-04-18 16:11] LABS: Hepatitis C Ab Qual. W/ RFX NEGATIVE (Negative)
[2025-04-19 10:12] LABS: Hepatitis B Surface Antigen Negative (Negative)
--- OUTSIDE RECORDS SUMMARY | 2025-04-20 13:46 | XMS_ITS | Clinical Summary ---
Author Organization [employer] [facility] Address [address] [place] [phone] Phone Care Team Providers Care Purchasing Internship Name Role Phone Lynn Proctor APRN Primary Care Physician Conditions or Problems Problem Name Problem Code Onset Date Status Entry Date Provider Comment Standard Description Annotate Transient alteration of awareness 154011664 (SNOMED CT) 12/08 Inactive 12/10 Ananya Isis [employer] Consciousness and/or awareness finding Tobacco User 202224329 (SNOMED CT) 12/08 Active 12/09 Ananya Isis [employer] Tobacco user Body mass index (BMI) 21.0-21.9; adult Z68.21 (ICD-10-CM) 12/08 Active 12/09 Ananya Isis [employer] Body mass index [BMI] 21.0-21.9, adult Body mass index (BMI) 21.0-21.9; adult Z68.21 (ICD-10-CM) 12/08 Correctio n 12/08 Ananya Isis [employer] Body mass index [BMI] 21.0-21.9, adult Depression / anxiety 014917883 (SNOMED CT) 12/08 Active 12/09 Ananya Isis [employer] Mixed anxiety and depressive disorder Body mass index (BMI) 21.0-21.9; adult Z68.21 (ICD-10-CM) 12/08 Removed 12/08 Ananya Isis [employer] Body mass index [BMI] 21.0-21.9, adult Body mass index (BMI) 22.0-22.9; adult Z68.22 (ICD-10-CM) Correctio n Ananya Isis [employer] Body mass index [BMI] 22.0-22.9, adult Screening for thyroid disorder 195840951 (SNOMED CT) 12/08 Inactive 12/08 Ananya Isis [employer] Thyroid disorder screening Screening for diabetes 159877095 (SNOMED CT) 12/08 Inactive 12/08 Ananya Isis [employer] Diabetes mellitus screening Screening visit for sexually trans dis 236332351 (SNOMED CT) 12/08 Inactive 12/08 Ananya Isis [employer] Venereal disease screening Hypokalemia 54878453 (SNOMED CT) 12/08 Inactive 12/08 Ananya Isis [employer] Hypokalemia Painful menstrual flow 767769979 (SNOMED CT) 12/08 Active 12/08 Ananya Isis [employer] Dysmenorrhea Headache, unspecified 60926282 (SNOMED CT) 12/08 Inactive 12/08 Ananya Isis [employer] Headache Body mass index (BMI) 22.0-22.9; adult Z68.22 (ICD-10-CM) Removed Judi Churchill APRN Body mass index [BMI] 22.0-22.9, adult Allergic conjunctivi tis, left 37954609955 4102 (SNOMED CT) Active Judi Churchill APRN Allergic conjunctivitis of left eye Body mass index (BMI) 22.0-22.9; adult Z68.22 (ICD-10-CM) 0 Correctio n Judi Churchill APRN Body mass index [BMI] 22.0-22.9, adult Muscle strain 56071247 (SNOMED CT) Active Judi Churchill APRN Muscle strain Neck spasm 64557482 (SNOMED CT) Active Judi Churchill APRN Muscle spasm of head and/or neck Cervicalgia 07617989 (SNOMED CT) Active Judi Churchill APRN Neck pain Body mass index (BMI) 22.0-22.9; adult Z68.22 (ICD-10-CM) Removed Lynn Proctor APRN Body mass index [BMI] 22.0-22.9, adult Annual physical examination , general 344945149 (SNOMED CT) Inactive Lynn Proctor APRN General examination of patient Dental abscess 999435455 (SNOMED CT) Inactive Lynn Proctor APRN Dental abscess Medications Medication Instructions Start Date Stop Date Generic Name NDC Provider IBUPROFEN 800 MG TABS Take 1 tablet by mouth twice a day as needed for pain 12/10 ibuprofen 80036075337 Ananya Isis [employer] ZADITOR 0.035 % SOLN Administer 1 drop into affected eye twice a day as needed 12/10 ketotifen fumarate 57346661008 Ananya Isis [employer] CYCLOBENZAPRINE HCL 5 MG TABS Take 1 tablet by mouth every eight hours as needed May cause drowsiness. 12/10 cyclobenzaprine 22373799682 Ananya Isis [employer] AMOXICILLIN-POT CLAVULANATE 875-125 MG TABS Take 1 tablet by mouth twice a day for 10 days amoxicillin-pot clavulanate 11362197900 Lynn Proctor APRN Zaditor 0.025 % (0.035 %) drops Administer 1 drop into affected eye twice a day as needed ketotifen fumarate 56823330768 Judi Churchill APRN CYCLOBENZAPRINE HCL 5 MG TABS Take 1 tablet by mouth every eight hours as needed May cause drowsiness. cyclobenzaprine 45716972327 Judi Churchill APRN AMOXICILLIN-POT CLAVULANATE 875-125 MG TABS Take 1 tablet by mouth twice a day for 10 days amoxicillin-pot clavulanate 55269474251 Lynn Proctor [employer] IBUPROFEN 800 MG TABS Take 1 tablet by mouth twice a day as needed for pain ibuprofen 43691448439 Lynn Proctor [employer] Medications Administered No information available. Allergies, Adverse Reactions, Alerts Allergy Name Reaction Description Start Date Severity Statu s Provider HYDROCODONE throat itching and vomiting Severe Active Lynn tapia [employer] Results Date Name Value Unit Range Flag [...] Plan of Care Type Date Detail Referral [facility], [address] [place] [address], [address] Referral Chiropractic Ref [facility], [address], [place], [address] Pending order T1 BMP Pending order T1 [...] Medication list docu mented in medical record [id number] Medication Reconciliation 4004F Patient screened for tobacco use and received tobacco cessation intervention [id number] Current every day smoker 06/12/25 [id number] Smoking cessation education SCT-050688175 Smoking cessation education [facility] 57484 T1 BMP [facility] 1759 T1 CBC no diff [facility] 496 T1 HGBA1c [facility] 62579 T1 TSH reflex to free T4 09/18/25 [facility] 35805 T1 RPR w/ reflex to titer & confirmation [facility] 38778 T1 HIV 1/2 Ag & Ab 4 th gen -consent required [facility]-[id number] Medication Reconciliation CPT-3077F Most recent systolic blood pressure >=140 mm Hg CPT-1159F Medication list docu mented in medical record CPT-1160F Review of all medica tions by a prescribing practitioner [id number] Medication Reconciliation CPT-3075F Most recent systolic blood [...]
--- OUTSIDE RECORDS SUMMARY | 2025-04-20 13:47 | XMS_ITS | Clinical Summary ---
Author Organization [facility] Address [facility] [place] [address] Care Team Providers Care Fsr Name Role Phone Ace Sierra DO Primary Care Provider [phone] Source Comments This information has been disclosed [...] therelease of HIV test results or diagnoses. [id number] Allergies Active Allergy Reactions Criticality Noted Date [...] 28, 0.25-35 mg-mcg per tabletIndicatio ns:Neutropenic fever ([facility]),Throm bocytopenia ([facility]) 6 Active cyclobenzaprine (FLEXERIL) 10 MG tablet [...] - Td or Tdap) 12/08/2019 12/07/2009 Mammogram ([facility]) 2024 Immunization: COVID-19 (2023- season) 2025 Immunization: [...] - 0.79 S/CO 11/04/2023 10:01 PM EDT [facility] Serum 11/04/2023 9:02 PM EDT 11/04/2023 9:02 PM EDT us Christ Ratliff PA LAB BLOOD ORDERABLES Fin al Result [facility] [address] * HIV 1+2 Antibody/Antigen with Reflex (07/14/2018 4:12 PM EST) HIV 1+2 AB/AGN Nonreactive Nonreactive 07/14/2018 7:02 PM EST [facility] Serum specimen (specimen) 07/14/2018 4:12 PM EST 07/14/2018 6:10 PM EST Narrative HEALTH LAB - 07/14/2018 7:02 PM EST HIV-1 p24 Antigen and HIV-1/HIV-2 Antibody not detected. us Daniel Dior MD LAB BLOOD ORDERABLES Final R esult [facility] [address] [place] [address], [facility] from Last 3 Months or Most Recently Relevant to Health Maintenance Insurance Advance Directives For more information, please contact: [phone] * Full Code (Latest Code Status on File) Date Activated Date Inactivated Comments 12/08/2015 10:19 AM 12/12/2015 12:34 PM Care Teams Fsr Relationship Specialty Start Date End Date Ace Sierra DO PCP - General Family Medicine 09/20/14
--- OUTSIDE RECORDS SUMMARY | 2025-04-20 13:47 | XMS_ITS | Clinical Summary ---
Author Organization [facility] Address [address] [place] [address] Care Team Providers Care Monogram Technician Name Role Phone Cici Hair RN Unavailable [phone] Osiel Valverde Primary Care Provider [phone] Jennifer Houser MD Unavailable [phone] Allergies Active Allergy Reactions Criticality Noted Date [...] Years) 12/08/201911/14 Depression Screening 06/15/2024 COVID-19 Vaccine (2024- season) 2025 Influenza Vaccination (#1) 2025 Insurance Care Teams Monogram Technician Relationship Specialty Start Date End Date Osiel Valverde [address] [phone] (Work) PCP - General Family Medicine 08/28/20 Cici Hair, JUAN CARLOS [address] [place] [address] Registered Nurse 08/28/20 Jennifer Houser MD [address] [place] [address] Physical Medicine and Rehab 10/22/20
--- OUTSIDE RECORDS SUMMARY | 2025-04-20 13:47 | XMS_ITS | Clinical Summary ---
Author Organization [facility] Address [address] [place] [address] Care Team Providers Care Feature Writer Name Role Phone Unavailable Primary Care Provider [...] Date Last Done Comments [facility]-Depression Screening 1984 [facility]-/Child/Adol SDOH Screenings 1984 [facility]-Varicella Vaccines (1 of 2 - 13+ 2-dose series) 1997 [facility]- SDOH Screenings 2002 [facility]-Adult SDOH Screenings 2002 [facility]-Hepatitis B Vaccines (1 of 3 - 19+ 3-dose series) 2003 [facility]-Pap Smear 2005 HPV Vaccines (1 - 3-dose SCD M series) 2011 [facility]-Cervical Cancer Screening 2014 [facility]-HPV/Cotest 2014 [facility]-DTaP,Tdap,and Td Vaccine s (2 - Td or Tdap) 12/08/2019 12/07/2009 [id number] Vaccine (1 - 20 24-25 season) 2025 [...]
== END 2025-04-18 23:59 | disposition home or self-care (01) ==
LOC: LAB.DROPOF 04-20 13:39
PROVIDERS: PCP Family Medicine; Visit Provider Nurse Practitioner
DX: Z11.59 Encounter for screening for other viral diseases (principal); K21.9 Gastro-esophageal reflux disease without esophagitis; K59.00 Constipation, unspecified; R31.9 Hematuria, unspecified
CPT/HCPCS: 80053; 82150; 83690; 84443; 85025; 86803; 87086; 87340; 87389